=== PATIENT | female | born 1970 | race American Indian/Alaskan Native ===

== ENCOUNTER 2018-02-05 14:42 | Outpatient (CLI) | payer BC ==
[2018-02-05 15:30] LABS: Hematocrit 39.8 % (30.3-42.9); Hemoglobin 13.2 gm/dl (10.1-14.3); Mean Corpuscular HGB Conc 33 % (30-34); Mean Corpuscular Hemoglobin 31 pg (28-32); Mean Corpuscular Volume 92 fl (79-97); Platelet Count 386 K/mm3 (140-440); Red Blood Count 4.31 M/mm3 (3.65-5.03); Red Cell Distribution Width 15.4 % (13.2-15.2)
[2018-02-05 17:10] LABS: Erythrocyte Sedimentation Rate 20 mm/Hr (0-20)
== END 2018-02-05 14:43 | disposition home or self-care (01) ==
LOC: LAB 14:42
PROVIDERS: ATTEND Specialist
DX: G65.1 Sequelae of other inflammatory polyneuropathy (principal)
CPT/HCPCS: 36415; 82607; 83921; 85027; 85652; 86038; 86225; 86334; 86592; 86618

== ENCOUNTER 2018-04-23 13:59 | Emergency (ER) | payer BC ==
[2018-04-23 14:17] VITALS: BP 148/84
[2018-04-23] MEDS ORDERED: TORADOL IM ONE (15:20)
[2018-04-23] MEDS ORDERED: NORCO 5/325 PO ONE (15:20)
[2018-04-23] MEDS ORDERED: ZOFRAN ODT PO ONE (15:20)
--- NOTE | 2018-04-23 15:24 | Emergency Department Report ---
ED Headache HPI - General Chief Complaint: Overdose Stated Complaint: NERVE PAIN/FEET Time Seen by Provider: 04/23/18 14:27 Source: patient - History of Present Illness Initial Comments: Mrs. Kennedy is a 48-year-old female with a history of peripheral neuropathy and shingles who presents with severe frontal headache and nausea. She took were 300 mg tablets of gabapentin quite close together in time in order to relieve the pain in her lower extremities. Since that time she's had headache and nausea. Nausea started last night. She awakened with with severe global throbbing headache. 8 out of 10 in severity. No relief with 2 tablets of Advil. No photophobia. No phonophobia. No fever. No neck pain. She did drive to the ER per personal vehicle. She has been under a lot of stress rec ently. She feels that the high dose of gabapentin is causing her symptoms. PCP Dr. Jermaine Wilson Neurologist Dr. Cohen Machine Stamper Dr. [facility] Quality: severe Head Injury Location: frontal Recent Head Trauma: occasional headaches Associated Symptoms: other (nausea) Allergies/Adverse Reactions: Allergies ampicillin [From Polycillin] Allergy (Verified 04/23/18 14:17) Unknown Home Medications: Ambulatory Orders Butalb/Acetamin/Caff 50-325-40 [Fioricet] 1 tab PO Q6HR PRN #5 tab 04/23/18 Promethazine [Phenergan TAB] 25 mg PO Q6HR PRN #10 tab 04/23/18 ED Review of Systems ROS: Stated complaint: NERVE PAIN/FEET Other details as noted in HPI Comment: All other systems reviewed and negative Constitutional: denies: fever, malaise Cardiovascular: denies: chest pain Gastrointestinal: nausea. denies: abdominal pain ED Past Medical Hx - Past Medical History Previous Medical History?: Yes Additional medical history: neuropathy, shingles - Surgical History Past Surgical History?: No - Social History Smoking Status: Never Smoker Substance Use Type: None - Medications Home Medications: Home Medications Medication Instructions Recorded Confirmed Last Taken Type Butalb/Acetamin/Caff 50-325-40 1 tab PO Q6HR PRN #5 tab 04/23/18 Unknown Rx [Fioricet] Promethazine [Phenergan TAB] 25 mg PO Q6HR PRN #10 tab 04/23/18 Unknown Rx ED Physical Exam - General Limitations: No Limitations - Other Other exam information: General: Well-appearing, no acute distress HEENT: Normocephalic atraumatic pupils equal round and reactive to light anicteric sclera Nose: no rhinorrhea Oropharynx: Clear mucous membranes no lesions Neck: supple, no meningismus Chest: Clear to auscultation bilaterally no rales rhonchi no wheezes Cardiac: Regular rate and rhythm no murmurs no rubs no gallops Abdomen: Soft nontender nondistended positive bowel sounds no guarding Extremities: No cyanosis no clubbing no edema Neuro: Moves all extremities 4, no gross deficits Psychiatric: Alert and oriented 4 normal affect normal judgment normal insight ED Course Vital Signs 04/23/18 14:14 Temperature 97.5 F L Pulse Rate 98 H Respiratory 16 Rate Blood Pressure 148/84 O2 Sat by Pulse 100 Oximetry ED Medical Decision Making - Medical Decision Making Headache and nausea and vomiting possibly due to unintentional gabapentin overdose. She denies any depression or suicidal ideation. CT head negative for acute process such as intracranial hemorrhage. I do not suspect meningitis or pseudotumor cerebri. I do not suspect intracranial mass. Prescribed Fioricet and promethazine. Patient will arrange transportation. She agreed to not drive her private vehicle home after receiving treatment in the here in the ED to address her discomfort. Critical care attestation.: If time is entered above; I have spent that time in minutes in the direct care of this critically ill patient, excluding procedure time. ED Disposition Clinical Impression: Medication adverse effect, Headache, Nausea & vomiting Disposition: DC-01 TO HOME OR SELFCARE Is pt being admited?: No Condition: Stable Instructions: Acute Headache (ED) Prescriptions: Butalb/Acetamin/Caff 50-325-40 [Fioricet] 1 tab PO Q6HR PRN #5 tab PRN Reason: Headache Promethazine [Phenergan TAB] 25 mg PO Q6HR PRN #10 tab PRN Reason: Nausea
--- NOTE | 2018-04-23 16:36 | Cat Scan Report ---
FINAL REPORT EXAM: CT HEAD/BRAIN WO CON HISTORY: headache TECHNIQUE: CT head without contrast PRIORS: None. FINDINGS: No acute intra-axial or extra-axial hemorrhage is identified. There is no evidence of midline shift or mass effect. The ventricles and sulci are within normal limits. Gross-white matter differentiation is intact. No acute parenchymal abnormalities seen. Bony calvarium is grossly intact. Visualized portions of the mastoids and paranasal sinuses are unre markable. IMPRESSION: Negative CT head
== END 2018-04-23 16:45 | disposition home or self-care (01) ==
LOC: ED 13:59
DX: R51 Headache (principal); R11.2 Nausea with vomiting, unspecified; T42.6X5A Adverse effect of other antiepileptic and sedative-hypnotic drugs, initial encounter; G62.9 Polyneuropathy, unspecified; Z88.1 Allergy status to other antibiotic agents; Y92.89 Other specified places as the place of occurrence of the external cause
CPT/HCPCS: 70450; 96372; 99283; J1885; Q0162